=== PATIENT | male | born 1955 | race Caucasian/White ===

== ENCOUNTER 2017-03-12 22:19 | Emergency (ER) | payer OTHER ==
[~2017-03-12] VITALS: Ht 182.9 cm; Wt 127.0 kg
[2017-03-12 22:20] VITALS: BP 142/76; PULSE 59; RESP 18; TEMP 97.1; O2SAT 99
--- NOTE | 2017-03-12 22:54 | NUR ---
Patient to ER bed 6 to gown for evaluation. Side rails up. Report given to Leyla GANDHI.
--- NOTE | 2017-03-12 23:35 | NUR ---
ER at bedside examining patient.
--- NOTE | 2017-03-12 23:35 | NUR ---
PT C/O CHEST PRESSURE AT STERNUM, NOT RADIATING AND NO PAIN, STATES HE HAD CHEST PAIN 4/10 THIS AFTERNOON. NO N/V/D. NO HEADACHE. A/OX4, AFEBRILE. SAFETY PRECAUTIONS IN PLACE, WILL CONTINUE TO MONITOR.
[2017-03-12] MEDS ORDERED: NITROGLYCERIN 0.4 MG TAB.SUBL SL ONE (23:45)
[2017-03-12] MEDS ORDERED: ASPIRIN 81 MG TAB.CHEW PO ONE (23:45)
[2017-03-13 00:14] LABS: BASOPHILS % (AUTO) 0.7 % (0.0-2.0); EOSINOPHILS # (AUTO) 0.2 K/uL (0.0-0.4); EOSINOPHILS % (AUTO) 3.9 % (0.0-4.0); HEMATOCRIT 37.7 % (36-54); HEMOGLOBIN 12.8 g/dL (14.0-18.0); LYMPHOCYTES # (AUTO) 1.5 K/uL (1.0-5.5); LYMPHOCYTES % (AUTO) 27.3 % (20.5-51.5); MEAN CORPUSCULAR HEMOGLOBIN 29 pg (27-31); MEAN CORPUSCULAR HGB CONC 34 % (32-36); MEAN CORPUSCULAR VOLUME 85 fL (79.0-98.0); MONOCYTES # (AUTO) 0.6 K/uL (0.0-1.0); MONOCYTES % (AUTO) 10.3 % (1.7-9.3); NEUTROPHILS # (AUTO) 3.2 K/uL (1.8-7.7); NEUTROPHILS % (AUTO) 57.8 % (40.0-70.0); PLATELET COUNT (AUTO) 133 K/uL (130-430); RED BLOOD CELL COUNT(AUTO) 4.43 MIL/uL (4.2-6.2); RED CELL DISTRIBUTION WIDTH 12.8 % (9.0-15.0); WHITE BLOOD COUNT (AUTO) 5.5 K/uL (4.8-10.8)
[2017-03-13 00:20] LABS: CALCIUM 8.6 mg/dL (8.4-11.0); CREATININE 1.29 mg/dL (0.55-1.30); POTASSIUM 3.9 mmol/L (3.5-5.1)
[2017-03-13 00:25] LABS: ALBUMIN 3.7 g/dL (3.4-4.8); TOTAL BILIRUBIN 0.8 mg/dL (0.0-1.0); TOTAL PROTEIN, SERUM 6.3 g/dL (6.4-8.3)
[2017-03-13 01:14] VITALS: BP 138/84; PULSE 63; RESP 18; TEMP 97.1; O2SAT 99
--- NOTE | 2017-03-13 01:14 | NUR ---
Patient given written and verbal discharge instructions and verbalizes understanding. ER MD Chaney discussed with patient the results and treatment provided. Patient in stable condition. ID arm band removed. IV catheter removed intact and dressing applied, no active bleeding. Patient educated on pain management and to follow up with PMD. Pain Scale 0/10. Opportunity for questions provided and answered.
== END 2017-03-13 01:14 | disposition home or self-care (01) ==
LOC: SED 22:19
DX: K21.9 Gastro-esophageal reflux disease without esophagitis (principal); I10 Essential (primary) hypertension; Z86.79 Personal history of other diseases of the circulatory system; R07.89 Other chest pain; R00.2 Palpitations
CPT/HCPCS: 36415; 71010; 80053; 84484; 85025; 85610-TC; 85730-TC; 93005; 99285